=== PATIENT | female | born 1945 | race Caucasian/White ===

== ENCOUNTER 2022-04-04 11:53 | Emergency (ER) | payer OTHER, SELFPAY ==
[2022-04-04] VITALS (7 sets, daily range): BP systolic 91–122; BP diastolic 47–81; PULSE 58–96; RESP 16–25; TEMP 37; O2SAT 85–100
--- NOTE | 2022-04-04 12:28 | ED.NURSE ---
was noted to have a fib with rvr at times. dr [email or web address] was notified and aware of this happening, 12 lead was done.
--- NOTE | 2022-04-04 13:01 | ED.GENADULT ---
HPI - General Adult General Date Seen: 04/04/22 Chief complaint: Weakness Stated complaint: weakness not feeling well Time Seen by Provider: 04/04/22 12:13 Source: patient and EMS History of Present Illness HPI narrative: Patient is a 76-year-old brought in by EMS from dialysis. Per EMS they were called secondary to weakness. They did not report any specific findings, they did not do blood sugar per nursing. She was transported without incident. She says that for the last 45 minutes of dialysis or so she was starting to feel poorly. She says she always feels poorly at the end of dialysis but today was much different. She says that they were starting to load her into the van to bring her home and she says she knew she was not in be able to get back home, that she just felt too weak. She does not have any specific symptoms. She does not have any chest pain or palpitations, denies shortness of breath, abdominal pain, nausea. Has not felt ill prior to dialysis, denies any fevers, cough or other signs of illness, black or bloody stools. She always has trouble with constipation and or diarrhea, and these were at baseline for her. She says during dialysis she tried eat a sandwich and candy as she normally does. She lives at the [facility] in [place], in senior living. She does not smoke or drink. Related Data Home Medications Medication Instructions Recorded Confirmed acetaminophen 500 mg tablet 1,000 mg PO TID 04/04/22 04/04/22 aspirin 81 mg chewable tablet 81 mg PO DAILY 04/04/22 04/04/22 atorvastatin 40 mg tablet 40 mg PO HS 04/04/22 04/04/22 budesonide 0.5 mg/2 mL suspension 0.5 mg inhalation BID 04/04/22 04/04/22 for nebulization calcium carbonate 500 mg calcium 500 mg PO TID 04/04/22 04/04/22 (1,250 mg) chewable tablet (Calcium 500) calcium polycarbophil 625 mg 625 mg PO DAILY 04/04/22 04/04/22 tablet (Fiber-Lax) carboxymethylcellulose sodium 1 % 1 drp ophthalmic (eye) QID 04/04/22 04/04/22 eye liquid gel drops (Lubricant Dry Eye Relief) fluticasone propionate 50 1 spray intranasal BID 04/04/22 04/04/22 mcg/actuation nasal spray,suspension gabapentin 100 mg capsule 200 mg PO HS 04/04/22 04/04/22 glucosamine sulfate 500 mg capsule 500 mg PO BID 04/04/22 04/04/22 ketorolac 0.5 % eye drops (Acular) 1 drp ophthalmic (eye) QID 04/04/22 04/04/22 lidocaine-prilocaine 2.5 %-2.5 % 1 applic topical . DIREC PRN 04/04/22 04/04/22 topical cream loperamide 2 mg capsule 2 mg PO QID PRN 04/04/22 04/04/22 loratadine 10 mg tablet (Claritin) 10 mg PO DAILY 04/04/22 04/04/22 menthol 0.44 %-zinc oxide 20.6 % 1 applic topical TID PRN 04/04/22 04/04/22 topical ointment (Calmoseptine) metoprolol tartrate 25 mg tablet 12.5 mg PO BID 04/04/22 04/04/22 midodrine 10 mg tablet 10 mg PO MOWEFR 04/04/22 04/04/22 nystatin 100,000 unit/gram topical 1 applic topical BID PRN 04/04/22 04/04/22 powder pantoprazole 40 mg tablet,delayed 40 mg PO DAILY 04/04/22 04/04/22 release pramipexole 0.125 mg tablet 0.25 mg PO TID 04/04/22 04/04/22 prednisolone acetate 1 % eye 1 drp ophthalmic (eye) BID 04/04/22 04/04/22 drops,suspension (Pred Forte) prochlorperazine maleate 5 mg 5 mg PO Q6H PRN 04/04/22 04/04/22 tablet (Compazine) sennosides 8.6 mg-docusate sodium 1 tab-cap PO HS PRN constipation 04/04/22 04/04/22 50 mg tablet (Senna-S) simethicone 125 mg capsule (Gas 125 mg PO QID PRN 04/04/22 04/04/22 Relief Extra Strength) topiramate 25 mg tablet 25 mg PO BID 04/04/22 04/04/22 vitamin B complex-vitamin C 100 1 tab PO DAILY 04/04/22 04/04/22 mg-folic acid 1 mg tablet (Dialyvite) Allergies Allergy/AdvReac Type Severity Reaction Status Date / Time ampicillin Allergy Verified 04/04/22 12:27 diclofenac Allergy Verified 04/04/22 12:27 ezetimibe [From Vytorin] Allergy Verified 04/04/22 12:27 simvastatin [From Vytorin] Allergy Verified 04/04/22 12:27 Review of Systems Status of ROS: Reports: 10 or more systems reviewed and unremarkable except as noted in History and below [facility] Social History Smoking Status: Former smoker Do you use any of these nicotine containing products: None Second hand tobacco smoke exposure: No How often do you have a drink containing alcohol: never How often do you have six or more drinks on one occasion: Never AUDIT-C Alcohol total score: 0 Non-prescribed substance use: denies use service: No Exam Narrative: Exam Narrative: Vital signs as noted above. In general, a nontoxic woman, she has her eyes closed but arouses easily when I talk to her. Head: Normocephalic, atraumatic. Eyes: Pupils are equal reactive. Extraocular movements are full. Conjunctivae are normal. ENT: Mucous membranes are moist. Throat is normal. Neck: Supple without lymphadenopathy. Heart: Regular rate and rhythm. Systolic murmur heard throughout the precordium. She says this is baseline for her. Lungs: Clear bilaterally. No increased work of breathing, crackles or wheezes. Abdomen: Soft and nontender. No organomegaly. Extremities: Well perfused. No edema. No calf tenderness. Pulses intact. Neurologic: Patient is alert and oriented to person and place. Speech is fluent. Face is symmetric. Moves all extremities equally. Affect: Normal. Skin: Warm and dry. Well perfused. Const: Vital Signs, click to edit/add: Vital Signs - 24 hr 04/04/22 11:54 04/04/22 14:30 04/04/22 14:00 Temperature 98.6 F Pulse Rate [Right Pulse Oximeter] 58 L 76 76 Respiratory Rate 16 Blood Pressure [Ri ght Upper Arm] 108/60 96/47 L 97/71 Pulse Oximetry 98 85 L 96 Oxygen Delivery Me thod Room Air Nasal Cannula Nasal Cannula Oxygen Flow Rate 04/04/22 12:30 04/04/22 12:00 04/04/22 15:05 Temperature Pulse Rate [Right Pulse Oximeter] 96 72 Respiratory Rate 25 H 18 Blood Pressure [Ri ght Upper Arm] 122/70 110/81 91/57 L Pulse Oximetry 100 100 Oxygen Delivery Me thod Nasal Cannula Nasal Cannula Oxygen Flow Rate 2 04/04/22 15:30 04/04/22 12:00 04/04/22 12:00 Temperature Pulse Rate [Right Pulse Oximeter] 87 Respiratory Rate 18 Blood Pressure [Ri ght Upper Arm] 102/56 L Pulse Oximetry 100 96 96 Oxygen Delivery Me thod Nasal Cannula Nasal Cannula Nasal Cannula Oxygen Flow Rate 2 2 Documenting provider has reviewed patient's vital signs: yes Course Course Hospital Course: Patient had an EKG which by my review showed atrial fibrillation, ventricular rate of 89 beats per minute. This is not a new diagnosis for her. She told me that she is on anticoagulation for atrial fibrillation but in review of her medications I do not see anything in terms of Coumadin or other oral anticoagulant. Watching her on the monitor, she frequently is rate controlled, but she does have brief spurts of rapid AFib well into the 160s to 180s. These typically last only 10-15 beats and then resolved spontaneously, and she does not seem aware of them. Labs are pending at this time. We did check a blood sugar, which was 125. Over time, the more rapid runs on the monitor dissipated and she remained in a controlled AFib. All of her labs, within what would be expected for a dialysis patient, were reassuring. Her white blood cell count was normal, hemoglobin was 12.2. Electrolytes showed a sodium of 135, potassium of 3.9, chloride of 97, creatinine of 2.6. Lactate mildly elevated at 2.3. LFTs were normal with the exception of an AST of 37 and an alk phos of 171. Bilirubin was normal. CRP was normal at less than 0.5. BNP was 4060, baseline unknown, but no complaints of shortness of breath or edema. TSH was normal. COVID, influenza and RSV negative. Troponin negative. When I went in to re-evaluate her, she asked if she could go home now. She says she feels back to normal and would like to be discharged. Given that she is without current complaints and labs do not show any specific abnormalities I think that is reasonable. If she has worsening, return for re-evaluation. Vital Signs Vital signs: Initial Vital Signs Temperature 98.6 F 04/04/22 11:54 Temperature Source Temporal Artery Scan 04/04/22 11:54 Pulse Rate 58 L 04/04/22 11:54 Pulse Rhythm 04/04/22 11:54 Pulse Strength 3+ Normal 04/04/22 11:54 Respiratory Rate 16 04/04/22 11:54 Blood Pressure 108/60 04/04/22 11:54 Blood Pressure Mean 76 04/04/22 11:54 Blood Pressure Position Sitting 04/04/22 11:54 Pulse Oximetry 98 04/04/22 11:54 Oxygen Delivery Method 04/04/22 11:54 Vital Signs Temperature 98.6 F 04/04/22 11:54 Pulse Rate 58 L 04/04/22 11:54 Respiratory Rate 16 04/04/22 11:54 Blood Pressure 108/60 04/04/22 11:54 Pulse Oximetry 98 04/04/22 11:54 Oxygen Delivery Method 04/04/22 11:54 Temperature 98.6 F 04/04/22 11:54 Pulse Rate 87 04/04/22 15:30 Respiratory Rate 18 04/04/22 15:30 Blood Pressure 102/56 L 04/04/22 15:30 Pulse Oximetry 100 04/04/22 15:30 Oxygen Delivery Method 04/04/22 15:30 Oxygen Flow Rate 2 04/04/22 15:05 Medical Decision Making Lab Data Labs: Lab Results 04/04/22 04/04/22 04/04/22 Range/Units 12:31 13:18 13:18 WBC 9.55 (4.50-11.00) K/uL RBC 3.81 L (4.00-5.20) m/uL Hgb 12.2 (12.0-16.0) gm/dL Hct 39.1 (33.0-51.0) % MCV 103 H (80-100) fL MCH 32 (26-34) pg MCHC 31 L (32-36) gm/dL RDW Coeff of Chas 13.5 (11.5-15.5) % Plt Count 294 (140-440) K/uL Neut % (Auto) 72.0 (42.0-72.0) % Lymph % (Auto) 18.4 L (20-44) % Mathews % (Auto) 6.7 (0.0-11.0) % Eos % (Auto) 1.7 (0.0-7.0) % Baso % (Auto) 0.5 (0.0-3.0) % Neut # (Auto) 6.87 (1.7-7.0) K/uL Lymph # (Auto) 1.80 (0.90-2.90) K/uL Mathews # (Auto) 0.60 (0.00-0.90) K/UL Eos # (Auto) 0.16 (0.00-0.50) K/uL Baso # (Auto) 0.05 (0.00-0.30) K/uL Abs Immat Gran (auto) 0.07 (0.00-0.30) K/uL Sodium 135 (135-149) mmol/L Potassium 3.9 (3.6-5.1) mmol/L Chloride 97 (96-114) mmol/L Carbon Dioxide 26 (20-32) mmol/L BUN 18 (7-30) mg/dL Creatinine 2.6 H (0.5-1.5) mg/dL Estimated GFR 18 ml/min Glucose 113 (60-115) mg/dL Lactate (0.5-1.9) mmol/L Calcium 9.0 (8.4-10.6) mg/dL Magnesium (1.5-2.6) mg/dL Total Bilirubin (0.1-1.5) mg/dL Direct Bilirubin (0.0-0.5) mg/dL AST (12-35) U/L ALT (4-35) U/L Alkaline Phosphatase (40-150) U/L C-Reactive Protein < 0.5 L (0.5-1.0) mg/dL NT-Pro-B Natriuret Pep (0-450) PG/mL Total Protein (6.0-8.3) g/dL Albumin (3.3-5.0) g/dL TSH (0.270-4.200) uIU/mL SARS-CoV-2 (PCR) Negative SARS-CoV-2 (Negative) Influenza Type A (PCR) Negative PCR FLU A (Negative) Influenza Type B (PCR) Negative PCR FLU B (Negative) RSV (PCR) Negative PCR RSV (Negative) POC Troponin I (0.01-0.04) ng/ml 04/04/22 04/04/22 04/04/22 Range/Units 13:18 13:18 13:18 WBC (4.50-11.00) K/uL RBC (4.00-5.20) m/uL Hgb (12.0-16.0) gm/dL Hct (33.0-51.0) % MCV (80-100) fL MCH (26-34) pg MCHC (32-36) gm/dL RDW Coeff of Chas (11.5-15.5) % Plt Count (140-440) K/uL Neut % (Auto) (42.0-72.0) % Lymph % (Auto) (20-44) % Mathews % (Auto) (0.0-11.0) % Eos % (Auto) (0.0-7.0) % Baso % (Auto) (0.0-3.0) % Neut # (Auto) (1.7-7.0) K/uL Lymph # (Auto) (0.90-2.90) K/uL Mathews # (Auto) (0.00-0.90) K/UL Eos # (Auto) (0.00-0.50) K/uL Baso # (Auto) (0.00-0.30) K/uL Abs Immat Gran (auto) (0.00-0.30) K/uL Sodium (135-149) mmol/L Potassium (3.6-5.1) mmol/L Chloride (96-114) mmol/L Carbon Dioxide (20-32) mmol/L BUN (7-30) mg/dL Creatinine (0.5-1.5) mg/dL Estimated GFR ml/min Glucose (60-115) mg/dL Lactate 2.3 H (0.5-1.9) mmol/L Calcium (8.4-10.6) mg/dL Magnesium 1.5 (1.5-2.6) mg/dL Total Bilirubin 0.5 (0.1-1.5) mg/dL Direct Bilirubin 0.3 (0.0-0.5) mg/dL AST 37 H (12-35) U/L ALT 21 (4-35) U/L Alkaline Phosphatase 171 H (40-150) U/L C-Reactive Protein (0.5-1.0) mg/dL NT-Pro-B Natriuret Pep 4060 H (0-450) PG/mL Total Protein 6.8 (6.0-8.3) g/dL Albumin 4.0 (3.3-5.0) g/dL TSH 1.460 (0.270-4.200) uIU/mL SARS-CoV-2 (PCR) (Negative) Influenza Type A (PCR) (Negative) Influenza Type B (PCR) (Negative) RSV (PCR) (Negative) POC Troponin I (0.01-0.04) ng/ml 04/04/22 Range/Units 13:18 WBC (4.50-11.00) K/uL RBC (4.00-5.20) m/uL Hgb (12.0-16.0) gm/dL Hct (33.0-51.0) % MCV (80-100) fL MCH (26-34) pg MCHC (32-36) gm/dL RDW Coeff of Chas (11.5-15.5) % Plt Count (140-440) K/uL Neut % (Auto) (42.0-72.0) % Lymph % (Auto) (20-44) % Mathews % (Auto) (0.0-11.0) % Eos % (Auto) (0.0-7.0) % Baso % (Auto) (0.0-3.0) % Neut # (Auto) (1.7-7.0) K/uL Lymph # (Auto) (0.90-2.90) K/uL Mathews # (Auto) (0.00-0.90) K/UL Eos # (Auto) (0.00-0.50) K/uL Baso # (Auto) (0.00-0.30) K/uL Abs Immat Gran (auto) (0.00-0.30) K/uL Sodium (135-149) mmol/L Potassium (3.6-5.1) mmol/L Chloride (96-114) mmol/L Carbon Dioxide (20-32) mmol/L BUN (7-30) mg/dL Creatinine (0.5-1.5) mg/dL Estimated GFR ml/min Glucose (60-115) mg/dL Lactate (0.5-1.9) mmol/L Calcium (8.4-10.6) mg/dL Magnesium (1.5-2.6) mg/dL Total Bilirubin (0.1-1.5) mg/dL Direct Bilirubin (0.0-0.5) mg/dL AST (12-35) U/L ALT (4-35) U/L Alkaline Phosphatase (40-150) U/L C-Reactive Protein (0.5-1.0) mg/dL NT-Pro-B Natriuret Pep (0-450) PG/mL Total Protein (6.0-8.3) g/dL Albumin (3.3-5.0) g/dL TSH (0.270-4.200) uIU/mL SARS-CoV-2 (PCR) (Negative) Influenza Type A (PCR) (Negative) Influenza Type B (PCR) (Negative) RSV (PCR) (Negative) POC Troponin I 0.01 (0.01-0.04) ng/ml Discharge Plan Discharge Clinical Impression: Weakness generalized Patient Disposition: Xfer SNF Condition: Improved Instructions: Weakness (ED) Additional Instructions: Return as needed for worsening or new symptoms such as fever, vomiting, shortness of breath, chest pain, fainting. Prescriptions: No Action acetaminophen 500 mg tablet 1,000 mg PO TID Label Comments: TAKE 2 TABS (1000MG) BY MOUTH THREE TIMES DAILY; TAKE 2 TABS (1000mg) BY MOUTH EVERY 8HRS NEEDED, MAX 4000MG PER 24 HOURS FROM ALL SOURCE aspirin 81 mg tablet,chewable 81 mg PO DAILY Label Comments: CHEW AND SWALLOW 1 TAB BY MOUTH ONCE DAILY atorvastatin 40 mg tablet 40 mg PO HS loperamide 2 mg capsule 2 mg PO QID PRN Label Comments: TAKE 2 CAPS (4MG) BY MOUTH AFTER FIRST LOOSE STOOL NEEDED;TAKE 1 TAB BY MOUTH AFTER EACH LOOSE STOOL NEEDED glucosamine sulfate 500 mg capsule 500 mg PO BID Label Comments: TAKE 1 CAP BY MOUTH TWICE DAILY budesonide 0.5 mg/2 mL suspension for nebulization 0.5 mg inhalation BID gabapentin 100 mg capsule 200 mg PO HS midodrine 10 mg tablet 10 mg PO MOWEFR Rx Instructions: PRE-DIALYSIS, MAY REPEAT ONCE DURING DIALYSIS IF SBP< 100 metoprolol tartrate 25 mg tablet 12.5 mg PO BID Label Comments: TAKE 1/2 TAB (12.5MG) BY MOUTH TWICE DAILY FOR A-FIB sennosides-docusate sodium [Senna-S] 8.6-50 mg tablet 1 tab-cap PO HS PRN (Reason: constipation) Label Comments: TAKE 1 TAB BY MOUTH DAILY AT BEDTIME NEEDED FOR CONSTIPATION simethicone [Gas Relief Extra Strength] 125 mg capsule 125 mg PO QID PRN Label Comments: TAKE 1 CAP BY MOUTH AFTER MEALS AND AT BEDTIME NEEDED FOR GAS topiramate 25 mg tablet 25 mg PO BID lidocaine-prilocaine 2.5-2.5 % cream 1 applic topical . DIREC PRN Rx Instructions: PRIOR TO DIALYSIS FOR ACCESS pantoprazole 40 mg tablet,delayed release (DR/EC) 40 mg PO DAILY pramipexole 0.125 mg tablet 0.25 mg PO TID Label Comments: TAKE 2 TABS (0.25mg) BY MOUTH 3 TIMES DAILY Dialyvite 100-1 mg tablet 1 tab PO DAILY Label Comments: TAKE 1 TABLET BY MOUTH DAILY calcium carbonate [Calcium 500] 500 mg calcium (1,250 mg) tablet,chewable 500 mg PO TID calcium polycarbophil [Fiber-Lax] 625 mg tablet 625 mg PO DAILY Label Comments: TAKE 1 TAB BY MOUTH ONCE DAILY;TAKE 1 TAB BY MOUTH ONCE DAILY NEEDED FOR GAS BLOATING OR CONSTIPATION fluticasone propionate 50 mcg/actuation spray,suspension 1 spray INTRANASAL BID Label Comments: INHALE 1 SPRAY INTO EACH NOSTRIL ONCE DAILY NEEDED menthol-zinc oxide [Calmoseptine] 0.44-20.6 % ointment 1 applic TOPICAL TID PRN Label Comments: APPLY TOPICALLY TO BUTTOCKS TWICE DAILY UNTIL HEALED.;APPLY TOPICALLY TWICE DAILY NEEDED FOR IRRITATION. prochlorperazine maleate [Compazine] 5 mg tablet 5 mg PO Q6H PRN loratadine [Claritin] 10 mg tablet 10 mg PO DAILY ketorolac [Acular] 0.5 % drops 1 drp ophthalmic (eye) QID prednisolone acetate [Pred Forte] 1 % drops,suspension 1 drp ophthalmic (eye) BID carboxymethylcellulose sodium [Lubricant Dry Eye Relief] 1 % drops, liquid gel 1 drp ophthalmic (eye) QID nystatin 100,000 unit/gram powder 1 applic topical BID PRN Stand Alone Forms: MyHealth Info Instructions
[2022-04-04 13:27] LABS: Lactate* 2.3 mmol/L (0.5-1.9)
[2022-04-04 13:30] LABS: Basophils Absolute Auto 0.05 K/uL (0.00-0.30); Basophils Percent Auto 0.5 % (0.0-3.0); Eosinophils Absolute Auto 0.16 K/uL (0.00-0.50); Eosinophils Percent Auto 1.7 % (0.0-7.0); Hematocrit 39.1 % (33.0-51.0); Hemoglobin* 12.2 gm/dL (12.0-16.0); Immature Granulocytes Abs Auto 0.07 K/uL (0.00-0.30); Lymphocytes Percent Auto 18.4 % (20-44); Mean Corpuscular HGB Conc 31 gm/dL (32-36); Mean Corpuscular Hemoglobin 32 pg (26-34); Mean Corpuscular Volume 103 fL (80-100); Monocytes Percent Auto 6.7 % (0.0-11.0); Neutrophils Absolute Auto 6.87 K/uL (1.7-7.0); Platelet Count* 294 K/uL (140-440); RDW Coefficient of Variation % 13.5 % (11.5-15.5); Red Blood Count 3.81 m/uL (4.00-5.20); White Blood Count* 9.55 K/uL (4.50-11.00)
[2022-04-04 13:34] LABS: Troponin, Point-of-Care* 0.01 ng/ml (0.01-0.04)
[2022-04-04 13:38] LABS: Slide Review Reflex No
[2022-04-04 13:46] LABS: PCR FLU A Negative PCR FLU A (Negative); PCR FLU B Negative PCR FLU B (Negative); PCR RSV Negative PCR RSV (Negative)
[2022-04-04 13:48] LABS: Chloride* 97 mmol/L (96-114)
[2022-04-04 13:49] LABS: Potassium* 3.9 mmol/L (3.6-5.1); Sodium* 135 mmol/L (135-149)
[2022-04-04 13:50] LABS: SARS PCR* Negative SARS-CoV-2 (Negative)
[2022-04-04 13:50] LABS: Alanine Aminotransferase* 21 U/L (4-35); Alkaline Phosphatase* 171 U/L (40-150); Aspartate Amino Transferase* 37 U/L (12-35); Bilirubin Direct* 0.3 mg/dL (0.0-0.5); Bilirubin Total* 0.5 mg/dL (0.1-1.5); Creatinine* 2.6 mg/dL (0.5-1.5); Estimated Glomerular Filt Rate 18 ml/min; Magnesium* 1.5 mg/dL (1.5-2.6); Total Protein* 6.8 g/dL (6.0-8.3)
[2022-04-04 13:51] LABS: Blood Urea Nitrogen* 18 mg/dL (7-30); Carbon Dioxide* 26 mmol/L (20-32)
[2022-04-04 13:52] LABS: Glucose* 113 mg/dL (60-115)
[2022-04-04 13:55] LABS: C Reactive Protein* < 0.5 mg/dL (0.5-1.0)
[2022-04-04 13:58] LABS: NT Pro B Type NatriureticPept* 4060 PG/mL (0-450)
--- NOTE | 2022-04-04 16:27 | ED.NURSE ---
krsi zepeda at [facility] in [place] called and message left that she is on her way back home.
== END 2022-04-04 16:15 ==
PROVIDERS: Emergency Provider Emergency Medicine
DX: R53.1 Weakness (principal)
CPT/HCPCS: 36415; 80048; 80076; 82962; 83605; 83735; 83880; 84443; 85025; 86140; 87502; 87634; 87635; 93005; 99284